=== PATIENT | male | born 1990 ===

== ENCOUNTER 2017-01-20 18:56 | Emergency (ER) | payer SELFPAY ==
[2017-01-20 18:58] VITALS: BMI 28.0
[2017-01-20 19:01] VITALS: BP 142/83; PULSE 92; TEMP 98.2; O2SAT 99
[2017-01-20] MEDS ORDERED: Tmp-Smz 800 mg-160 mg DS Tab PO STA (19:37)
--- NOTE | 2017-01-20 19:41 | ED PDOC ---
Arrival/HPI - General Chief Complaint: Abnormal Skin Integrity Time Seen by Provider: 01/20/17 19:21 Historian: Patient - History of Present Illness Narrative History of Present Illness (Text): 01/20/17 19:30 A 26 year old male presents to the emergency department complaining of a scab to the left calf and right upper thigh. He denies any history of bug bites, laceration, fever, chills, nausea, vomiting or any other complaints. Patient does mention he shaves his legs. Time/Duration: Other Symptom Onset: Sudden Symptom Course: Unchanged Quality: Other Activities at Onset: Rest Context: Home Past Medical History - Provider Review Nursing Documentation Reviewed: Yes - Infectious Disease Hx of Infectious Diseases: None - Tetanus Immunization Tetanus Immunization: Unknown - Past Medical History Past Medical History: No Previous - Psychiatric Hx Depression: No Hx Emotional Abuse: No Hx Physical Abuse: No Hx Substance Use: Yes - Past Surgical History Past Surgical History: No Previous - Anesthesia Hx Anesthesia: No - Suicidal Assessment Feels Threatened In Home Enviroment: No Family/Social History - Physician Review Nursing Documentation Reviewed: Yes Family/Social History: Unknown Family HX Smoking Status: Heavy Smoker > 10 Cigarettes Daily Hx Alcohol Use: Yes Hx Substance Use: Yes Substance used: marijuana Hx Substance Use Treatment: No Allergies/Home Meds Allergies/Adverse Reactions: Allergies No Known Allergies Allergy (Verified 01/20/17 18:58) Review of Systems - Physician Review All systems were reviewed & negative as marked: Yes - Review of Systems Constitutional: absent: Fevers Gastrointestinal: absent: Abdominal Pain, Nausea, Vomiting Skin: Other (scabs to the bilateral lower extremities) Physical Exam Vital Signs Reviewed: Yes Vital Signs Temp Pulse Resp BP Pulse Ox 01/20/17 19:56 18 99 01/20/17 19:00 98.2 F 92 H 20 142/83 99 Temperature: Afebrile Blood Pressure: Normal Pulse: Regular Respiratory Rate: Normal Appearance: Positive for: Well-Appearing, Non-Toxic, Comfortable Pain Distress: None Mental Status: Positive for: Alert and Oriented X 3 - Systems Exam Head: Present: Atraumatic, Normocephalic Pupils: Present: PERRL Extroacular Muscles: Present: EOMI Conjunctiva: Present: Normal Mouth: Present: Moist Mucous Membranes Neck: Present: Normal Range of Motion Respiratory/Chest: Present: Clear to Auscultation, Good Air Exchange. No: Respiratory Distress, Accessory Muscle Use Cardiovascular: Present: Regular Rate and Rhythm, Normal S1, S2. No: Murmurs Abdomen: Present: Normal Bowel Sounds. No: Tenderness, Distention, Peritoneal Signs Back: Present: Normal Inspection Upper Extremity: Present: Normal Inspection. No: Cyanosis, Edema Lower Extremity: Present: Other (scab with superfical surround eryhtema to the left lateral calf and right upper thigh). No: Edema Neurological: Present: GCS=15, CN II-XII Intact, Speech Normal Skin: Present: Warm, Dry, Normal Color, Other (scab with superfical surround eryhtema to the left lateral calf and right upper thigh). No: Rashes Psychiatric: Present: Alert, Oriented x 3, Normal Insight, Normal Concentration Medical Decision Making ED Course and Treatment: 01/20/17 19:30 Impression: A 26 year old male with a scab to the bilateral legs. Differential Diagnosis included but are not limited to: cellulitis vs. folliculitis Plan: -- Bactrim and Keflex -- Reassess and disposition Progress Notes: 01/20/17 19:45 Reevaluation: On reevaluation the patient feels better and is in no acute distress. I have discussed the results and plan with the patient, who expresses understanding. Patient given the opportunity to ask question, all questions were answered and there is agreement with the plan to discharge the patient home. Patient is stable for discharge. Patient was instructed to follow up with physician/clinic in 1-2 days or return if symptoms persist/worsen or new concerning symptoms arise. - Medication Orders Current Medication Orders: Discontinued Medications Cephalexin Monohydrate (Keflex) 500 mg PO ONCE STA PRN Reason: Protocol Stop: 01/20/17 19:34 Last Admin: 01/20/17 19:52 Dose: 500 mg Trimethoprim/Sulfamethoxazole (Bactrim Ds Tab) 1 tab PO STAT STA PRN Reason: Protocol Stop: 01/20/17 19:38 Last Admin: 01/20/17 19:52 Dose: 1 tab - Scribe Statement The provider has reviewed the documentation as recorded by the Brennaibe Marko Rudolph Provider Scribe Attestation: All medical record entries made by the Scribe were at my direction and personally dictated by me. I have reviewed the chart and agree that the record accurately reflects my personal performance of the history, physical exam, medical decision making, and the department course for this patient. I have also personally directed, reviewed, and agree with the discharge instructions and disposition. Disposition/Present on Arrival - Present on Arrival Any Indicators Present on Arrival: No History of DVT/PE: No History of Uncontrolled Diabetes: No Urinary Catheter: No History of Decub. Ulcer: No History Surgical Site Infection Following: None - Disposition Have Diagnosis and Disposition been Completed?: Yes Diagnosis: Folliculitis, Cellulitis Disposition: HOME/ ROUTINE Disposition Time: 19:45 Patient Plan: Discharge Condition: STABLE Discharge Instructions (ExitCare): Cellulitis (ED), Folliculitis (ED) Additional Instructions: Take meds as prescribed/do not shave your legs/follow up with your doctor /If no improvement/ worsening symptoms return to the emergency room Prescriptions: Sulfamethoxazole/Trimethoprim [Bactrim DS 800 mg-160 mg] 1 tab PO BID #14 tab Cephalexin [cephalexin] 500 mg PO TID #21 cap Referrals: PCP,NO [Primary Care Provider] - Follow up with primary
[2017-01-20 19:56] VITALS: RESP 18
== END 2017-01-20 19:56 | disposition home or self-care (01) ==
LOC: ED 18:56
DX: L73.9 Follicular disorder, unspecified (principal); L03.116 Cellulitis of left lower limb; L03.115 Cellulitis of right lower limb